=== PATIENT | male | born 1985 | race Caucasian/White ===

== ENCOUNTER 2017-09-29 09:24 | Emergency (ER) | payer OTHER ==
[2017-09-29 09:39] VITALS: BP 134/90
--- NOTE | 2017-09-29 09:59 | ED Physician Documentation ---
PD HPI UPPER EXT INJURY - Stated complaint Stated Complaint: LEFT PINKY INJ - Chief complaint Chief Complaint: Ext Problem - Additonal information Additional information: Just prior to arrival patient injured finger playing "abram ball". This he may have jammed it against the wall. left 5th digit with defomity unable to move. Review of Systems Musculoskeletal: reports: Other (denies pain or injury other than left 5th finger) PD PAST MEDICAL HISTORY - Past Medical History Cardiovascular: None Respiratory: None Neuro: None Endocrine/Autoimmune: None GI: None : None HEENT: None Psych: None Musculoskeletal: None Derm: None - Past Surgical History HEENT: Tonsil/Adenoidectomy - Present Medications Home Medications: Ambulatory Orders Medication Instructions Recorded Confirmed No Known Home Medications [No 09/29/17 09/29/17 Known Home Medications] - Allergies Allergies/Adverse Reactions: Allergies Allergy/AdvReac Type Severity Reaction Status Date / Time No Known Drug Allergies Allergy Verified 09/29/17 09:40 - Social History Does the pt smoke?: No Smoking Status: Never smoker Does the pt drink ETOH?: Yes Does the pt have substance abuse?: No - POLST Patient has POLST: No PD ED PE NORMAL - General General: Alert and oriented X 3 - HEENT HEENT: Atraumatic - Neck Neck: Supple, no meningeal sign - Respiratory Respiratory: No respiratory distress - Extremities Extremities: Other (left 5th digit with hyperextension/deformity at PIP consistent with dislocation, neurovascularly intact, no TTP or defomity of MTP or 4th digit. No wrist or elbow pain) Results - Vitals Vitals: Vital Signs - 24 hr 09/29/17 09:36 Temperature 36.4 C L Heart Rate 60 Respiratory 16 Rate Blood Pressure 134/90 H O2 Saturation 95 Oxygen O2 Source Room air Procedures - Reduction Body part reduced: Finger Fracture or dislocation: Dislocation Anesthesia: Other (none) Reduction aftercare: NV intact, Xray confirms reduction, Alignment improved, Splint applied PD MEDICAL DECISION MAKING - ED course ED course: Left fifth digit PIP dislocation successfully reduced and immobilized in the emergency department.No fractures. Departure - Departure Disposition: 01 Home, Self Care Clinical Impression: Dislocation of left little finger Condition: Good Comments: Keep your finger splint on for the next 3-5 days, after that time you can beverly tape your finger to the next finger to protect it. Have an appointment with your primary care doctor or an orthopedist at the end of this week or beginning of next week approximately 7 days. You can take [id number] ibuprofen and Tylenol and use ice for your pain.
--- NOTE | 2017-09-29 10:15 | XRAY Preliminary Report ---
Exam: XR HAND 2 VIEW LT IMPRESSION: 1. No fracture or dislocation at this time. 2. Some swelling of the digits. [facility] SITE ID: [id number]
--- NOTE | 2017-09-29 10:17 | XRAY Report ---
EXAM: LEFT HAND RADIOGRAPHY EXAM DATE: 09/29/2017 10:05 AM. CLINICAL HISTORY: Finger dislocation playing volleyball. COMPARISON: None. TECHNIQUE: 3 views. FINDINGS: Bones: No fracture or bone lesion. A small smooth ossicle adjacent to the ulnar styloid process, like ly developmental than sequela of remote injury. Joints: No subluxation. Joint spaces are preserved. Soft Tissues: Mild swelling of the digits, more prominent of proximal index finger. IMPRESSION: 1. No fracture or dislocation at this time. 2. Some swelling of the digits. [facility] Referring Provider Line: [phone] SITE ID: [id number]
== END 2017-09-29 10:25 | disposition home or self-care (01) ==
LOC: ED 09:24
DX: S63.287A Dislocation of proximal interphalangeal joint of left little finger, initial encounter (principal); W23.1XXA Caught, crushed, jammed, or pinched between stationary objects, initial encounter; Y93.79 Activity, other specified sports and athletics
CPT/HCPCS: 26770; 99283